=== PATIENT | female | born 1935 | race Caucasian/White ===

== ENCOUNTER 2023-07-02 12:27 | Emergency (ER) | payer OTHER, MEDICARE ==
[~2023-07-02] VITALS: Ht 152.4 cm; Wt 68.5 kg
[2023-07-02] MEDS ORDERED: ACETAMINOPHEN 325 MG TAB PO ONE (17:45)
[2023-07-02] MEDS ORDERED: ONDANSETRON ODT8 MG PO (19:52)
[2023-07-02 20:50] VITALS: BP 142/80
== END 2023-07-02 20:50 | disposition home or self-care (01) ==
LOC: ED 12:27
DX: S02.2XXA Fracture of nasal bones, initial encounter for closed fracture (principal); S05.12XA Contusion of eyeball and orbital tissues, left eye, initial encounter; S60.512A Abrasion of left hand, initial encounter; I10 Essential (primary) hypertension; W01.10XA Fall on same level from slipping, tripping and stumbling with subsequent striking against unspecified object, initial encounter
CPT/HCPCS: 70450; 70486; 72125; 73130; 99284-25; A9270